=== PATIENT | female | born 1975 | race Caucasian/White ===

== ENCOUNTER → 2018-04-09 07:55 | Outpatient (CLI) | payer OTHER, MEDICAID, SELFPAY ==
--- NOTE | 2018-04-09 | DI.MRI.S_ITS ---
PROCEDURE: MR LUMBAR SPINE WO CON INDICATIONS: NECK PAIN/DORSOPATHY TECHNIQUE: Noncontrast sagittal T1 spin echo and T2 fast echo, sagittal STIR, axial T1 and T2 fast spin echo through the lumbar spine. In cases with scoliosis, additional coronal T2 fast spin echo may be performed. COMPARISON: None. FINDINGS: Image quality: Excellent. Alignment and Curvature: There is normal bony alignment. Bone Marrow: Marrow is of normal overall signal. No acute vertebral body compression fractures. Spinal Cord: Conus medullaris terminates at the L1 level. Visualized cord demonstrates normal signal and size. Paraspinous Soft Tissues: No paravertebral masses. L1-L2: Normal appearance. L2-L3: Normal appearance. L3-L4: Normal appearance. L4-L5: Loss of disc signal. Mild, diffuse disc bulge. Mild bilateral facet hypertrophy. No central stenosis. No neural foraminal narrowing. Focal high intensity zone noted in the posterior annulus compatible with fissure. No neural impingement. L5-S1: Loss of disc signal and height. Mild, diffuse disc bulge. Mild bilateral facet hypertrophy. No central stenosis. Mild right neural foraminal narrowing. Focal high intensity zones noted in the annulus compatible with fissures. No neural impingement. IMPRESSION: 1. [id number] L5-S1 degenerative disc disease. Mild L4-L5 degenerative disc disease. 2. Mild L4-L5 and L5-S1 facet arthropathy. 3. No central stenosis. 4. Mild right L5-S1 neural foraminal narrowing. 5. No neural impingement. 6. L4-L5 and L5-S1 disc annulus fissures Dictated by: Ann Marie Cardoso MD, PhD on 04/09/2018 at 13:35 Approved by: Ann Marie Cardoso MD, PhD on 04/09/2018 at 13:39
--- NOTE | 2018-04-09 | DI.MRI.S_ITS ---
PROCEDURE: MR CERVICAL SPINE WO CON INDICATIONS: NECK PAIN/DORSOPATHY TECHNIQUE: Noncontrast sagittal T1 spin echo and T2 fast spin echo, sagittal STIR, foraminal oblique sagittal T2 fast spin echo, and axial gradient echo or T2 fast spin echo through the cervical spine. COMPARISON: None. FINDINGS: Image quality: Excellent. Alignment and Curvature: There is normal bony alignment. Bone Marrow: Marrow demonstrates normal overall signal. Spinal Cord: Visualized spinal cord has normal size and signal. No cerebellar tonsillar herniation. Paraspinous Soft Tissues: No paravertebral masses. Prevertebral soft tissues are normal in thickness. C2-C3: Loss of disc signal. No central stenosis. No neural foraminal narrowing. Mild right facet hypertrophy. No neural impingement. C3-C4: Loss of disc signal and slight loss of disc height. Mild, diffuse disc bulge. No central stenosis. Mild right and moderate left neural foraminal narrowing. No neural impingement. C4-C5: Loss of disc signal and height. Mild diffuse disc bulge. Mild narrowing of the central canal. Moderate to severe bilateral neural foraminal narrowing. Slight flattening deformity exiting C5 nerve roots bilaterally secondary to neural foraminal narrowing. C5-C6: Loss of disc signal. Mild, diffuse disc bulge. No central stenosis. Mild bilateral facet hypertrophy. Mild bilateral neural foraminal narrowing. No neural impingement. C6-C7: Loss of disc signal. Mild, diffuse disc bulge. No central stenosis. Mild bilateral facet hypertrophy. No neural foraminal narrowing. No neural impingement C7-T1: Normal appearance. IMPRESSION: 1. Multilevel degenerative disc disease. 2. Multilevel facet arthropathy. 3. Mild C4-C5 the central canal narrowing. 4. Moderate to severe bilateral C4-C5 neural foraminal narrowing. Mild right and moderate left C3 on C4 neural foraminal narrowing. Mild bilateral C5-C6 and C6-C7 neural foraminal narrowing. 5. Slight flattened deformity exiting bilateral C5 nerve roots secondary to C4-C5 neural foraminal narrowing. Please correlate with clinical data. Dictated by: Ann Marie Cardoso MD, PhD on 04/09/2018 at 11:12 Approved by: Ann Marie Cardoso MD, PhD on 04/09/2018 at 11:29
== END ==
PROVIDERS: PCP Family Medicine; Visit Provider Emergency Medicine
DX: M50.30 Other cervical disc degeneration, unspecified cervical region (principal); M47.812 Spondylosis without myelopathy or radiculopathy, cervical region
CPT/HCPCS: 72141; 72148

== ENCOUNTER → 2018-04-24 14:59 | Outpatient (CLI) | payer OTHER, MEDICAID, SELFPAY ==
[2018-04-24 16:59] LABS: C-Reactive Protein Quant < 0.5 mg/dL (<1.0); Rheumatoid Factor < 8.6 IU/mL (<12.0)
[2018-04-24 17:10] LABS: Erythrocyte Sedimentation Rate 5 MM/HR (0-20)
[2018-04-26 22:06] LABS: ANA Screen NEGATIVE (Negative); DNA Antibody Crithidia IFA NEGATIVE (Negative); Rheumatoid Factor <14 IU/mL; Sjogren Antiboday SS-A <1.0 NEG AI (<1.0 NEGATIVE); Sjogren Antiboday SS-B <1.0 NEG AI (<1.0 NEGATIVE); Sm Antibody <1.0 NEG AI (<1.0 NEGATIVE); Sm/RNP Antibody <1.0 NEG AI (<1.0 NEGATIVE)
== END ==
PROVIDERS: PCP Family Medicine; Visit Provider Family Medicine
DX: M79.641 Pain in right hand (principal); M79.642 Pain in left hand
CPT/HCPCS: 36415; 85651; 86038; 86140; 86430

== ENCOUNTER 2019-02-06 08:15 | Outpatient (RCR) | payer OTHER, MEDICAID, SELFPAY ==
--- NOTE | 2019-01-31 16:07 | PT.OIE ---
Current Diagnoses Pelvic and perineal pain (01/31/19) Past Surgical History Status post appendectomy Status post bilateral salpingo-oophorectomy (BSO) (02/06/17) Status post hysterectomy (02/06/17) Status post laparoscopy (02/06/17) Provider Visit Care Team Role Provider Type Martina Aguero MD Primary Care Provider Non-Staff Specialty: Medical Address: [address] [place] [address], [id number] Email: Phillip Bee MD Attending Provider Non-Staff Specialty: PAPER SHEETER Address: [address] [place] [address], [id number] Email: Physical Therapy Initial Evaluation PT-OP-A Visit Information Start: 01/31/19 07:10 Freq: Status: Active Protocol: Document 01/31/19 09:00 AMB (Rec: 01/31/19 09:45 AMB [email or web address]) Out-Patient Physical Therapy Visit Information Visit Information Visit Type Initial Evaluation Visit Start Time 09:00 Visit Stop Time 09:45 Total Visit Minutes 45 Visit Number 1 PT-OP-B Current Condition Start: 01/31/19 07:10 Freq: Status: Active Protocol: Document 01/31/19 09:00 AMB (Rec: 02/01/19 15:41 AMB [email or web address]) Current Condition History of Current Condition Onset Date chronic Current Complaints pelvic pain and urinary incontinence History of Current Condition Loraine reports painful menses her entire life. Cramping, more right sided. She had a vaginal hysterectomy and removal of one ovary about a year ago. Now the pain, is more constant but can still be worse cyclically. She does have the right ovary still, which does have 2 cysts . About 6 months ago, she had inguinal hernia surgery bilaterally. She notes both small and large urinary leaks, multiple times per day. She has a lot of urgency. She does notice R hip pain which she states is over the piriformis but denies radiating pain. . Not currently sexually active. 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 While pain has been longstanding, leaking is new in the last year, and pain is worsening, previously she was sexually active, but she would not consider that now. Personal Factors Other Personal Factors That May Effect Anxiety. Fibromyalgia. Back Therapy/Recovery pain. PT-OP-C Subjective Start: 01/31/19 07:10 Freq: Status: Active Protocol: Document 01/31/19 09:00 AMB (Rec: 02/01/19 15:41 AMB [email or web address]) Patient Questionnaires Pelvic Pain and Urgency/Frequency Patient Symptom Scale Pelvic Pain Score 18 OP-PT Pain Assessment Pain Assessment Grid Paper Pain Assessment Grid Completed Yes Location Lower Abdomen Pain Location Details abdomen at umbilicus and lower Intensity 7 Scale Used Numeric (1 - 10) Description Cramping PT-OP-I Pelvic Floor Start: 01/31/19 07:10 Freq: Status: Active Protocol: Document 01/31/19 09:00 AMB (Rec: 02/01/19 16:07 AMB [email or web address]) Pelvic Floor Assessment Urine Pelvic Floor Surgery Yes: hysterectomy Urinary Symptoms Urge Sensation Pain Leakage Size Large Leakage Cause Cough Exercise Sneeze Urge Leaks Per Day 5 Voiding Frequency 10x/day Nocturia 2 Urine Pad Type Maxi Pad Pelvic Clock Pelvic Clock 12-3 Guarding Pelvic Clock 3-6 Guarding Tenderness Pelvic Clock 6-9 Guarding Tenderness Pelvic Clock 9-12 Guarding Perineal Descent Resting Absent Bearing Absent Contraction Ability Voluntary Contraction Absent Voluntary Relaxation Absent Comments Pelvic Floor Comments Pt initially was able to contract pelvic floor briefly, but used abdominals to help, and then became very anxious to the point that the internal exam was stopped. After discussing this with the patient, we will use biofeedback in the future, as the visual cues may work better for her. PT-OP-T Assessment and Plan Start: 01/31/19 07:10 Freq: Status: Active Protocol: Document 01/31/19 09:00 AMB (Rec: 02/01/19 16:07 AMB [email or web address]) Physical Therapy Assessment Rehab Potential Rehabilitation Potential Fair Evaluation Complexity Number of Personal Factors/Comorbidities 1-2 Number of Body Systems Impaired 4 or More Clinical Presentation at Evaluation Evolving Impairments Impairments Balance Functional Activities Pain Strength Goals Three Impairment Strength Long-Term Goal (LTG) Loraine will learn how to engage her pelvic floor muscles to strengthen them to 3/5 or greater. LTG Duration 10 weeks Two Impairment Pain Short Term Goal (STG) Loraine will be able to engage in the sexual activity of her choice without pain. STG Duration 4 weeks Long-Term Goal (LTG) Loraine will be able to hold urine for 2 hours without an increase in pain. LTG Duration 8 weeks One Impairment Incontinence Short Term Goal (STG) Loraine will be independent with urge suppression techniques to avoid urge incontinence. STG Duration 4 weeks Long-Term Goal (LTG) Loraine will cough without leaking. LTG Duration 8 weeks Assessment Summary Assessment Loraine presents to physical therapy with a worsening of her chronic pelvic and abdominal pain, with a more recent onset of both urge and stress urinary incontinence. She had a difficult time finding her pelvic floor muscles, and palpation of her pelvic floor did refer pain into her abdomen. Her hip/ back/piriformis orthopedic dysfunction may also be playing a role in her pelvic floor dysfunction. She will benefit from manual therapy to help her relax her pelvic floor, and then a strengthening program to improve her incontinence. Physical Therapy Plan Frequency and Duration Frequency of Treatment 1x/Week Duration of Treatment 10 weeks Plan of Care Start Date 01/31/19 Plan of Care End Date 04/11/19 Therapeutic Interventions Therapeutic Interventions Home Exercise Program Manual Therapy Neuromuscular Re-education Self-Care/Home Management Therapeutic Activities Therapeutic Exercises Modalities Biofeedback Electric Stimulation Next Visit Focus/Plan Next Note Type Treatment Note Next Visit Plan Biofeedback for pelvic relaxation, self massage for abdominal pain
--- NOTE | 2019-02-01 16:08 | PT.OPPOC ---
Current Diagnoses Pelvic and perineal pain (01/31/19) Provider Visit Care Team Role Provider Type Martina Aguero MD Primary Care Provider Non-Staff Specialty: Medical Address: [address] [place] [address], [place], [address] Email: Phillip Bee MD Attending Provider Non-Staff Specialty: COMMISSARY MANAGER Address: [address] [place] [address], [id number] Email: Plan Of Care PT-OP-T Assessment and Plan Start: 01/31/19 07:10 Freq: Status: Active Protocol: Document 01/31/19 09:00 AMB (Rec: 02/01/19 16:07 AMB [email or web address]) Physical Therapy Assessment Rehab Potential Rehabilitation Potential Fair Evaluation Complexity Number of Personal Factors/Comorbidities 1-2 Number of Body Systems Impaired 4 or More Clinical Presentation at Evaluation Evolving Impairments Impairments Balance Functional Activities Pain Strength Goals Three Impairment Strength Nutritional Services Cook Goal (LTG) Loraine will learn how to engage her pelvic floor muscles to strengthen them to 3/5 or greater. LTG Duration 10 weeks Two Impairment Pain Short Term Goal (STG) Loraine will be able to engage in the sexual activity of her choice without pain. STG Duration 4 weeks Jail Goal (LTG) Loraine will be able to hold urine for 2 hours without an increase in pain. LTG Duration 8 weeks One Impairment Incontinence Short Term Goal (STG) Loraine will be independent with urge suppression techniques to avoid urge incontinence. STG Duration 4 weeks Nutritional Services Cook Goal (LTG) Loraine will cough without leaking. LTG Duration 8 weeks Assessment Summary Assessment Loraine presents to physical therapy with a worsening of her chronic pelvic and abdominal pain, with a more recent onset of both urge and stress urinary incontinence. She had a difficult time finding her pelvic floor muscles, and palpation of her pelvic floor did refer pain into her abdomen. Her hip/ back/piriformis orthopedic dysfunction may also be playing a role in her pelvic floor dysfunction. She will benefit from manual therapy to help her relax her pelvic floor, and then a strengthening program to improve her incontinence. Physical Therapy Plan Frequency and Duration Frequency of Treatment 1x/Week Duration of Treatment 10 weeks Plan of Care Start Date 01/31/19 Plan of Care End Date 04/11/19 Therapeutic Interventions Therapeutic Interventions Home Exercise Program Manual Therapy Neuromuscular Re-education Self-Care/Home Management Therapeutic Activities Therapeutic Exercises Modalities Biofeedback Electric Stimulation Next Visit Focus/Plan Next Note Type Treatment Note Next Visit Plan Biofeedback for pelvic relaxation, self massage for abdominal pain Plan of Care Dates Plan of Care Start Date 01/31/19 Plan of Care End Date 04/11/19 Please Sign and Return: I have reviewed this Plan of Care and certify that the skilled therapy services above are required to meet the patient?s needs. Physician Signature Date Printed Name and Credentials Clinical Instructor Signature Printed Name and Credentials
--- NOTE | 2019-02-06 15:28 | PT.OTN ---
Current Diagnoses Pelvic and perineal pain (02/06/19) Physical Therapy Treatment Note PT-OP-A Visit Information Start: 01/31/19 07:10 Freq: Status: Active Protocol: Document 02/06/19 08:15 AMB (Rec: 02/06/19 15:28 AMB [email or web address]) Out-Patient Physical Therapy Visit Information Visit Information Visit Type Treatment Note Visit Start Time 08:15 Visit Stop Time 09:00 Total Visit Minutes 45 Visit Number 2 PT-OP-B Current Condition Start: 01/31/19 07:10 Freq: Status: Active Protocol: Document 01/31/19 09:00 AMB (Rec: 02/01/19 15:41 AMB [email or web address]) Current Condition History of Current Condition Onset Date chronic Current Complaints pelvic pain and urinary incontinence History of Current Condition Loraine reports painful menses her entire life. Cramping, more right sided. She had a vaginal hysterectomy and removal of one ovary about a year ago. Now the pain, is more constant but can still be worse cyclically. She does have the right ovary still, which does have 2 cysts . About 6 months ago, she had inguinal hernia surgery bilaterally. She notes both small and large urinary leaks, multiple times per day. She has a lot of urgency. She does notice R hip pain which she states is over the piriformis but denies radiating pain. . Not currently sexually active. 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 While pain has been longstanding, leaking is new in the last year, and pain is worsening, previously she was sexually active, but she would not consider that now. Personal Factors Other Personal Factors That May Effect Anxiety. Fibromyalgia. Back Therapy/Recovery pain. PT-OP-C Subjective Start: 01/31/19 07:10 Freq: Status: Active Protocol: Document 02/06/19 08:15 AMB (Rec: 02/06/19 15:28 AMB [email or web address]) OP-PT Subjective Patient Comments Patient Comments Pt has a migraine today. She has been having increase R sided abdominal pain for the past 2 days. She finds that trying to hold her urine increases her abdominal pain, she also finds that trying to do a Kegel increases her abdominal pain. PT-OP-I Pelvic Floor Start: 01/31/19 07:10 Freq: Status: Active Protocol: Document 01/31/19 09:00 AMB (Rec: 02/01/19 16:07 AMB [email or web address]) Pelvic Floor Assessment Urine Pelvic Floor Surgery Yes: hysterectomy Urinary Symptoms Urge Sensation Pain Leakage Size Large Leakage Cause Cough Exercise Sneeze Urge Leaks Per Day 5 Voiding Frequency 10x/day Nocturia 2 Urine Pad Type Maxi Pad Pelvic Clock Pelvic Clock 12-3 Guarding Pelvic Clock 3-6 Guarding Tenderness Pelvic Clock 6-9 Guarding Tenderness Pelvic Clock 9-12 Guarding Perineal Descent Resting Absent Bearing Absent Contraction Ability Voluntary Contraction Absent Voluntary Relaxation Absent Comments Pelvic Floor Comments Pt initially was able to contract pelvic floor briefly, but used abdominals to help, and then became very anxious to the point that the internal exam was stopped. After discussing this with the patient, we will use biofeedback in the future, as the visual cues may work better for her. PT-OP-Q Treatments Start: 01/31/19 07:10 Freq: Status: Active Protocol: Document 02/06/19 08:15 AMB (Rec: 02/06/19 15:28 AMB [email or web address]) Therapeutic Exercises Supine Exercises 3 Supine Exercise Name cat/cow with breath Reps/Minutes 2x10 2 Supine Exercise Name quadruped side bend Reps/Minutes 1x10 1 Supine Exercise Name lower trunk rotation Reps/Minutes 2x10 Manual Therapy Treatment Soft Tissue Mobilization 2 Body Location abdomen Comments ILU and then bladder superior MFR 1 Body Location R piriformis Mobilization Type Myofascial Release Sustained Pressure Manual Traction long axis Details L leg Body Position Supine Manual Techniques 1 Type pubic shotgun PT-OP-R Modalities Start: 01/31/19 07:10 Freq: Status: Active Protocol: Document 02/06/19 08:15 AMB (Rec: 02/06/19 15:28 AMB [email or web address]) Hot Pack/Cold Pack Treatment Hot Pack Location abdomen Patient Position Hooklying Treatment Duration (minutes) 10 PT-OP-T Assessment and Plan Start: 01/31/19 07:10 Freq: Status: Active Protocol: Document 02/06/19 08:15 AMB (Rec: 02/06/19 15:28 AMB [email or web address]) Physical Therapy Assessment Assessment Summary Assessment R posterior ASIS in supine today, better after manual, may teach self MET if continues to be low. Pt with continued difficulty identifying pelvic floor will need to continue with biofeedback but deferred due to pain increase today. Physical Therapy Plan Next Visit Focus/Plan Next Note Type Treatment Note Next Visit Plan Biofeedback for pelvic relaxation, self massage for abdominal pain
--- NOTE | 2019-02-26 14:47 | PT.OPDS ---
Current Diagnoses Pelvic and perineal pain (02/06/19) Provider Visit Care Team Role Provider Type Martina Aguero MD Primary Care Provider Non-Staff Specialty: Medical Address: [address] [place] [address], [place], [address] Email: Phillip Bee MD Attending Provider Non-Staff Specialty: POST OFFICE MARKUP CLERK Address: [address] [place] [address], [address] Email: Visit Number Visit Number 2 Discharge Summary PT-OP-B Current Condition Start: 01/31/19 07:10 Freq: Status: Active Protocol: Document 01/31/19 09:00 AMB (Rec: 02/01/19 15:41 AMB [email or web address]) Current Condition History of Current Condition Onset Date chronic Current Complaints pelvic pain and urinary incontinence History of Current Condition Loraine reports painful menses her entire life. Cramping, more right sided. She had a vaginal hysterectomy and removal of one ovary about a year ago. Now the pain, is more constant but can still be worse cyclically. She does have the right ovary still, which does have 2 cysts . About 6 months ago, she had inguinal hernia surgery bilaterally. She notes both small and large urinary leaks, multiple times per day. She has a lot of urgency. She does notice R hip pain which she states is over the piriformis but denies radiating pain. . Not currently sexually active. 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 While pain has been longstanding, leaking is new in the last year, and pain is worsening, previously she was sexually active, but she would not consider that now. Personal Factors Other Personal Factors That May Effect Anxiety. Fibromyalgia. Back Therapy/Recovery pain. PT-OP-C Subjective Start: 01/31/19 07:10 Freq: Status: Active Protocol: Document 02/06/19 08:15 AMB (Rec: 02/06/19 15:28 AMB [email or web address]) OP-PT Subjective Patient Comments Patient Comments Pt has a migraine today. She has been having increase R sided abdominal pain for the past 2 days. She finds that trying to hold her urine increases her abdominal pain, she also finds that trying to do a Kegel increases her abdominal pain. PT-OP-I Pelvic Floor Start: 01/31/19 07:10 Freq: Status: Active Protocol: Document 01/31/19 09:00 AMB (Rec: 02/01/19 16:07 AMB [email or web address]) Pelvic Floor Assessment Urine Pelvic Floor Surgery Yes: hysterectomy Urinary Symptoms Urge Sensation Pain Leakage Size Large Leakage Cause Cough Exercise Sneeze Urge Leaks Per Day 5 Voiding Frequency 10x/day Nocturia 2 Urine Pad Type Maxi Pad Pelvic Clock Pelvic Clock 12-3 Guarding Pelvic Clock 3-6 Guarding Tenderness Pelvic Clock 6-9 Guarding Tenderness Pelvic Clock 9-12 Guarding Perineal Descent Resting Absent Bearing Absent Contraction Ability Voluntary Contraction Absent Voluntary Relaxation Absent Comments Pelvic Floor Comments Pt initially was able to contract pelvic floor briefly, but used abdominals to help, and then became very anxious to the point that the internal exam was stopped. After discussing this with the patient, we will use biofeedback in the future, as the visual cues may work better for her. PT-OP-T Assessment and Plan Start: 01/31/19 07:10 Freq: Status: Active Protocol: Document 02/26/19 14:44 AMB (Rec: 02/26/19 14:47 AMB [email or web address]) Physical Therapy Assessment Goals Three Impairment Strength Patient Support Specialist Goal (LTG) Loraine will learn how to engage her pelvic floor muscles to strengthen them to 3/5 or greater. LTG Duration NOT MET Two Impairment Pain Short Term Goal (STG) Loraine will be able to engage in the sexual activity of her choice without pain. STG Duration NOT MET Patient Support Specialist Goal (LTG) Loraine will be able to hold urine for 2 hours without an increase in pain. LTG Duration NOT MET One Impairment Incontinence Short Term Goal (STG) Loraine will be independent with urge suppression techniques to avoid urge incontinence. STG Duration NOT MET Patient Support Specialist Goal (LTG) Loraine will cough without leaking. LTG Duration NOT MET Assessment Summary Assessment Pt attended 2 appointments, 1 eval and 1 treatment, and then requested to be discharged. She did not make significant gains since she had a migraine at her last treatment. She had difficulty understanding pelvic strengthening exercises . Anxiety was a big issue for her. Physical Therapy Plan Discharge Physical Therapy Discharge Reasons Patient Request
== END 2019-02-26 16:35 | disposition home or self-care (01) ==
LOC: PHYS 08:15
PROVIDERS: PCP Family Medicine; Visit Provider Obstetrics & Gynecology
DX: R10.2 Pelvic and perineal pain (principal)
CPT/HCPCS: 97110; 97140; 97162

== ENCOUNTER → 2019-03-26 19:12 | Outpatient (CLI) | payer OTHER, MEDICAID, SELFPAY ==
--- NOTE | 2019-03-26 19:16 | DI.MRI.S_ITS ---
PROCEDURE: MR CERVICAL SPINE WO CON INDICATIONS: PERESTHESIA OF SKIN - PAIN TECHNIQUE: Noncontrast sagittal T1 spin echo and T2 fast spin echo, sagittal STIR, foraminal oblique sagittal T2 fast spin echo, and axial gradient echo or T2 fast spin echo through the cervical spine. COMPARISON: [facility], MR, MR CERVICAL SPINE WO CON, 04/09/2018, 8:06. FINDINGS: Image quality: Excellent. Alignment and Curvature: Grossly unchanged alignment with straightening of the normal cervical lordosis. Trace retrolisthesis of C3 on C4 and C4 on C5. Bone Marrow: Multilevel degenerative endplate sclerosis and spurring. Diffuse facet arthropathy. Spinal Cord: Visualized spinal cord has normal size and signal. No cerebellar tonsillar herniation. Paraspinous Soft Tissues: No paravertebral masses. Prevertebral soft tissues are normal in thickness. C2-C3: Normal appearance. C3-C4: Bilateral uncovertebral arthropathy and posterior intervening disc osteophyte complex, and bilateral facet arthropathy. No high-grade canal stenosis. No left foraminal stenosis. Mild right foraminal narrowing with mild compression of the exiting nerve root although the appearance is unchanged since 04/09/18 C4-C5: Bilateral uncovertebral arthropathy and posterior intervening disc osteophyte complex, which is mildly asymmetric, left greater than right. Bilateral facet arthropathy. Mild left-sided canal narrowing however grossly unchanged. Moderate left foraminal stenosis which is probably unchanged associated compression of the nerve root. Moderate right foraminal narrowing with associated compression of the nerve root, also unchanged. C5-C6: Bilateral uncovertebral arthropathy and posterior intervening disc osteophyte complex, and bilateral facet arthropathy. No high-grade canal stenosis. No definite left foraminal stenosis. Mild right foraminal narrowing. No interval change. C6-C7: Bilateral uncovertebral arthropathy and posterior intervening disc osteophyte complex, and bilateral facet disease. No canal stenosis. No definite foraminal stenosis bilaterally. C7-T1: Bilateral uncovertebral arthropathy and posterior intervening disc osteophyte complex, and bilateral facet arthropathy. No canal stenosis. Mild left foraminal narrowing with minimal compression of the nerve root. No definite right foraminal stenosis. Overall appearance is unchanged IMPRESSION: No interval change since 04/09/18 as detailed above by spinal level. Dictated by: Inder Nichole M.D. on 03/27/2019 at 9:26 Approved by: Inder Nichole M.D. on 03/27/2019 at 9:34
--- NOTE | 2019-03-26 19:16 | DI.MRI.S_ITS ---
PROCEDURE: MR THORACIC SPINE WO CON INDICATIONS: PERESTHESIA OF SKIN - PAIN TECHNIQUE: Noncontrast sagittal T1 spine echo and T2 fast spin echo, sagittal STIR, axial T1 and T2 fast spin echo through the thoracic spine. COMPARISON: [facility], CR, THORACIC SPINE 3 VIEWS, 07/27/2016, 14:57. [facility], MR, MR LUMBAR SPINE WO CON, 03/26/2019, 20:03. [facility], MR, MR CERVICAL SPINE WO CON, 03/26/2019, 19:26. FINDINGS: Image quality: Diagnostic Alignment and Curvature: There is normal bony alignment. Bone Marrow: Marrow is of normal overall signal. No acute vertebral body compression fractures. Spinal Cord: Visualized spinal cord is normal in size and signal. Paraspinous Soft Tissues: No paravertebral masses. Miscellaneous: Mild central disc protrusions can be seen at the T5-T6 and the T6-T7 levels. No significant neural foraminal or central canal narrowing can be seen throughout. IMPRESSION: No significant thoracic spine abnormality can be seen. Dictated by: Maikol Irene M.D. on 03/27/2019 at 8:17 Approved by: Maikol Irene M.D. on 03/27/2019 at 8:20
--- NOTE | 2019-03-26 19:16 | DI.MRI.S_ITS ---
PROCEDURE: MR LUMBAR SPINE WO CON INDICATIONS: PARESTHESIA OF SKIN TECHNIQUE: Noncontrast sagittal T1 spin echo and T2 fast echo, sagittal STIR, axial T1 and T2 fast spin echo through the lumbar spine. In cases with scoliosis, additional coronal T2 fast spin echo may be performed. COMPARISON: [facility], MR, MR LUMBAR SPINE WO CON, 04/09/2018, 8:26. [facility], MR, MR CERVICAL SPINE WO CON, 03/26/2019, 19:26. [facility], MR, MR THORACIC SPINE WO CON, 03/26/2019, 19:44. FINDINGS: Image quality: Diagnostic Alignment and Curvature: There is normal bony alignment. Bone Marrow: Marrow is of normal overall signal. No acute vertebral body compression fractures. Spinal Cord: Conus medullaris terminates at the L1 level. Visualized cord demonstrates normal signal and size. Paraspinous Soft Tissues: No paravertebral masses. T12-L1: Normal appearance. L1-L2: Normal appearance. L2-L3: Normal appearance. L3-L4: The disc height and disk signal are well-preserved. Mild generalized disc bulge is seen. Mild facet joint hypertrophy is seen. Mild bilateral neural foraminal narrowing is seen. No significant central canal narrowing is seen. L4-L5: Mild loss of disc height is seen. Loss of disc signal is seen. [id number] disc bulge is seen. Moderate facet hypertrophy is seen, left worse than right. There is moderate bilateral neural foraminal narrowing seen, right worse than left. Mild to moderate central canal narrowing is seen. L5-S1: Moderate to severe loss of disc height and disc signal are seen. Reactive marrow endplate changes are seen, which are hyperintense on T1-weighted and T2-weighted imaging and most consistent with fatty metaplasia (Modic type II changes). Moderate generalized disc bulge is seen. Mild facet joint hypertrophy is seen. Moderate bilateral neural foraminal narrowing is seen, right worse than left. Mild to moderate central canal narrowing is seen. IMPRESSION: Focal L5-S1 degenerative change, with milder degenerative changes seen elsewhere. Dictated by: Maikol Irene M.D. on 03/27/2019 at 8:20 Approved by: Maikol Irene M.D. on 03/27/2019 at 8:23
== END ==
PROVIDERS: PCP Family Medicine; Visit Provider Nurse Practitioner Family
DX: M54.6 Pain in thoracic spine (principal); R20.2 Paresthesia of skin; M47.817 Spondylosis without myelopathy or radiculopathy, lumbosacral region; M47.812 Spondylosis without myelopathy or radiculopathy, cervical region; M48.02 Spinal stenosis, cervical region
CPT/HCPCS: 72141; 72146; 72148

== ENCOUNTER → 2019-07-05 16:17 | Outpatient (CLI) | payer OTHER, MEDICAID, SELFPAY ==
--- NOTE | 2019-07-05 16:19 | DI.US.S_ITS ---
PROCEDURE: US EXTREMITY NONVASC LOWER LT INDICATIONS: dog bite TECHNIQUE: Real-time scanning was performed of the left lower extremity, with image documentation. COMPARISON: None. FINDINGS: In the region of the left lateral hip, there is a subcutaneous fluid collection measuring 2.1 x 0.3 x 1.6 cm. This corresponds to the region of palpable abnormality. No discrete mass lesion identified. IMPRESSION: Nonspecific fluid collection, potentially resolving hematoma versus seroma (bland or infected). Dictated by: Inder Nichole M.D. on 07/05/2019 at 17:22 Approved by: Inder Nichole M.D. on 07/05/2019 at 17:23
== END ==
PROVIDERS: PCP Family Medicine; Visit Provider Nurse Practitioner Family
DX: S70.272A Other superficial bite of hip, left hip, initial encounter (principal); R22.2 Localized swelling, mass and lump, trunk; W54.0XXA Bitten by dog, initial encounter
CPT/HCPCS: 76882

== ENCOUNTER → 2019-11-21 07:42 | Outpatient (CLI) | payer OTHER, MEDICAID, SELFPAY ==
--- NOTE | 2019-11-21 | DI.MRI.S_ITS ---
PROCEDURE: MR SHOULDER LT WO CON INDICATIONS: Pain in left shoulder TECHNIQUE: Noncontrast oblique coronal T2 fast spin echo with fat saturation, oblique sagittal T1 spin echo and T2 fast spin echo with fat saturation, axial T1 spin echo and T2 fast spin echo with fat saturation through the shoulder. COMPARISON: None. FINDINGS: Image quality: Diagnostic with mild motion artifact. Rotator cuff: There is mild to moderate partial tearing predominantly along the articular surface in the distal supraspinatus approximately 6 mm from its insertion. This measures approximately 8 mm in anteroposterior dimension. No discrete full thickness tear or tendon retraction. The infraspinatus, subscapularis, and teres minor appear intact Sagittal images demonstrate no fatty muscle atrophy. Bones and bursae: No bone marrow contusions or fractures. There is mild to moderate acromioclavicular joint degeneration with mild periarticular soft tissue and bone marrow edema. The acromion demonstrates conventional anatomy, without an os acromiale. A small amount of subacromial-subdeltoid or subcoracoid bursal fluid is present. Capsule and soft tissues: There is linear intermediate signal suggestive of mild degenerative tearing in the posterosuperior labrum. In the absence of intra-articular contrast, the glenohumeral ligaments appear intact. The long head of the biceps tendon demonstrates normal location and morphology. The rotator interval appears normal, without fibrosis. The coracohumeral ligament is normal in thickness. IMPRESSION: 1. Mild to moderate partial thickness tearing in the distal supraspinatus as described. No discrete full-thickness tear or tendon retraction. 2. Wczp-jg-siwbyxof acromioclavicular joint degeneration with mild subacromial/subdeltoid bursitis. 3. Suspected small linear tear at in the posterosuperior labrum. Dictated by: Sal Rai M.D. on 11/21/2019 at 10:14 Approved by: Sal Rai M.D. on 11/21/2019 at 10:20
== END ==
PROVIDERS: PCP Family Medicine; Visit Provider Nurse Practitioner Family
DX: M25.512 Pain in left shoulder (principal); M75.112 Incomplete rotator cuff tear or rupture of left shoulder, not specified as traumatic; M19.012 Primary osteoarthritis, left shoulder; M75.52 Bursitis of left shoulder; G89.29 Other chronic pain
CPT/HCPCS: 73221

== ENCOUNTER → 2019-12-02 07:47 | Outpatient (CLI) | payer OTHER, MEDICAID, SELFPAY ==
--- NOTE | 2019-12-02 | DI.MRI.S_ITS ---
PROCEDURE: MR CERVICAL SPINE WO CON INDICATIONS: Other muscle spasm TECHNIQUE: Noncontrast sagittal T1 spin echo and T2 fast spin echo, sagittal STIR, foraminal oblique sagittal T2 fast spin echo, and axial gradient echo or T2 fast spin echo through the cervical spine. COMPARISON: [facility], MR, MR CERVICAL SPINE WO CON, 04/09/2018, 8:06. [facility], MR, MR CERVICAL SPINE WO CON, 03/26/2019, 19:26. FINDINGS: Image quality: Excellent. Alignment and Curvature: There is normal bony alignment. Bone Marrow: Marrow demonstrates normal overall signal. Spinal Cord: Visualized spinal cord has normal size and signal. No cerebellar tonsillar herniation. Paraspinous Soft Tissues: No paravertebral masses. Prevertebral soft tissues are normal in thickness. C2-C3: Preserved disc height. Mild disc desiccation. There is diffuse posterior disc bulge and uncovertebral hypertrophy. Mild bilateral facet arthropathy. The central canal is patent. No foraminal stenosis. C3-C4: Mild loss of disc height and disc desiccation. There is mild bilateral facet arthropathy. The central canal is patent. Moderate bilateral foraminal stenosis, not significantly changed from the last exam. C4-C5: Mild loss of disc height and disc desiccation. There is mild bilateral facet arthropathy. The central canal is mildly narrowed. Tazisigy-oi-uufwcp bilateral foraminal stenosis. There is no significant change from the last exam. C5-C6: Mild loss of disc height and disc desiccation. Mild posterior disc bulge. There is moderate bilateral facet arthropathy. The central canal is patent. Mild bilateral foraminal stenosis, not significantly changed from the last exam. C6-C7: Mild loss of disc height and disc desiccation. Mild posterior disc bulge. There is moderate bilateral facet arthropathy. The central canal is patent. Mild bilateral foraminal stenosis, not significantly changed from the last exam. C7-T1: Normal appearance. IMPRESSION: 1. Multilevel degenerative disc disease and facet arthropathy as described. 2. Mild central canal stenosis at C4-C5, not significantly changed. 3. Multilevel foraminal stenosis as described, not significantly changed. Dictated by: Shai Rahman M.D. on 12/02/2019 at 12:44 Approved by: Shai Rahman M.D. on 12/03/2019 at 8:18
== END ==
PROVIDERS: PCP Family Medicine; Visit Provider Nurse Practitioner Family
DX: M62.838 Other muscle spasm (principal); M50.31 Other cervical disc degeneration, high cervical region; M48.02 Spinal stenosis, cervical region; M47.812 Spondylosis without myelopathy or radiculopathy, cervical region
CPT/HCPCS: 72141

== ENCOUNTER → 2020-01-22 12:39 | Outpatient (CLI) | payer OTHER, MEDICAID, SELFPAY ==
[2020-01-26 19:24] LABS: Anti Gliadin IgG Ab 2 Units (<20); Gliadin Gluten IgA 3 Units (<20)
== END ==
PROVIDERS: PCP Nurse Practitioner Family; Referring Provider Nurse Practitioner Family; Visit Provider Nurse Practitioner Family
DX: R10.9 Unspecified abdominal pain (principal)
CPT/HCPCS: 36415; 83516

== ENCOUNTER → 2020-06-18 12:37 | Outpatient (CLI) | payer OTHER, MEDICAID, SELFPAY | PROVIDERS: PCP Nurse Practitioner Family; Visit Provider Registered Nurse | DX: M75.42 Impingement syndrome of left shoulder (principal) | CPT/HCPCS: 95886; 95911 ==

== ENCOUNTER → 2020-09-16 15:22 | Outpatient (CLI) | payer OTHER, MEDICAID, SELFPAY ==
--- NOTE | 2020-09-16 15:24 | DI.RAD.S_ITS ---
PROCEDURE: XR CERVICAL SPINE 4V OR 5V INDICATIONS: neck pain TECHNIQUE: 5 views of the cervical spine acquired. COMPARISON: None. FINDINGS: Bones: No fracture. Straightening of the normal lordotic curvature. Multilevel degenerative endplate sclerosis and spurring. Diffuse facet arthropathy. Moderate narrowing of the C3-C4 and C4-C5 disc spaces. On the left there is mild bony foraminal narrowing at C4-C5. On the right, there is mild C4-C5 bony foraminal narrowing Soft tissues: No prevertebral soft tissue swelling. IMPRESSION: Cervical spondylosis and facet arthropathy as above Mild bilateral C4-C5 bony foraminal stenosis. Dictated by: Inder Nichole M.D. on 09/16/2020 at 15:51 Approved by: Inder Nichole M.D. on 09/16/2020 at 15:53
== END ==
PROVIDERS: PCP Nurse Practitioner Family; Referring Provider Physical Medicine & Rehabilitation; Visit Provider Physical Medicine & Rehabilitation
DX: M54.2 Cervicalgia (principal); M47.22 Other spondylosis with radiculopathy, cervical region; M50.223 Other cervical disc displacement at C6-C7 level; M48.02 Spinal stenosis, cervical region; M51.04 Intervertebral disc disorders with myelopathy, thoracic region; M53.3 Sacrococcygeal disorders, not elsewhere classified
CPT/HCPCS: 72050; 99214

== ENCOUNTER → 2021-02-26 07:04 | Outpatient (CLI) | payer OTHER, MEDICAID, SELFPAY ==
[2021-02-26 08:14] LABS: Add Manual Diff / Slide Review NO; Basophils Absolute Auto 100 /uL (0-100); Eosinophils Absolute Auto 200 /uL (0-450); Eosinophils Percent Auto 2.4 % (2-4); HEMOLYSIS < 15 (0-50); Hematocrit 41.8 % (36-46); Hemoglobin 14.3 g/dL (12.0-16.0); Lymphocytes Absolute Auto 2300 /uL (1100-4500); Lymphocytes Percent Auto 24.3 % (25-40); Mean Corpuscular HGB Conc 34.1 % (30-36); Mean Corpuscular Hemoglobin 31.2 PG (26-34); Mean Corpuscular Volume 91.6 fL (80-100); Monocytes Absolute Auto 600 /uL (0-900); Monocytes Percent Auto 6.4 % (3-14); Neutrophils Absolute Auto 6200 /uL (1500-7000); Neutrophils Percent Auto 65.9 % (50-75); Platelet Count 284 X10^3/uL (150-400); Red Blood Cell Count 4.57 X10^6/uL (4.0-5.2); Red Cell Distribution Width 12.9 % (11.6-14.8); White Blood Cell Count 9.4 X10^3/uL (4.5-11.0)
[2021-02-26 08:23] LABS: Alanine Aminotransferase 24 IU/L (<35); Albumin 4.3 g/dL (3.5-5.0); Albumin Globulin Ratio 1.7 (1.0-2.8); Alkaline Phosphatase 66 U/L (38-126); Aspartate Aminotransferase 24 IU/L (14-36); BUN Creatinine Ratio 22.2 (6-22); Bilirubin Total 0.3 mg/dL (0.2-1.3); Blood Urea Nitrogen 16 mg/dL (7-17); Calcium 9.6 mg/dL (8.4-10.2); Carbon Dioxide 26 mmol/L (22-32); Chloride 104 mmol/L (98-107); Cholesterol 207 mg/dL (140-199); Estimated Glomerular Filt Rate > 60.0 mL/min (>60); Globulin 2.6 g/dL (1.7-4.1); Glucose 98 mg/dL (70-100); HDL Cholesterol 61 mg/dL (40-60); LDL Cholesterol Calculated 131 mg/dL (<100); Magnesium 2.1 mg/dL (1.6-2.3); Potassium 4.2 mmol/L (3.4-5.1); Sodium 137 mmol/L (137-145); Total Protein 6.9 g/dL (6.3-8.2); Triglycerides 73 mg/dL (35-150)
[2021-02-26 08:55] LABS: Ferritin 56 ng/mL (6-137)
[2021-02-26 09:59] LABS: Folate > 20.0 ng/mL (2.76-20.0); Vitamin B12 574 pg/mL (239-931)
[2021-02-28 13:07] LABS: HEMOLYSIS < 15 (0-50); Iron 72 ug/dL (37-170)
[2021-02-28 13:24] LABS: Transferrin 226 mg/dL (206-381)
[2021-02-28 13:28] LABS: Percent Iron Saturation 27 % (15-50); Total Iron Binding Capacity 263 ug/dL (265-497)
[2021-02-28 13:37] LABS: TSH w/ Reflex to FT4 0.97 uIU/mL (0.47-4.68)
== END ==
PROVIDERS: PCP Nurse Practitioner Family; Referring Provider Nurse Practitioner Family; Visit Provider Nurse Practitioner Family
DX: M79.10 Myalgia, unspecified site (principal); Z13.0 Encounter for screening for diseases of the blood and blood-forming organs and certain disorders involving the immune mechanism; Z13.220 Encounter for screening for lipoid disorders; Z13.29 Encounter for screening for other suspected endocrine disorder; Z13.1 Encounter for screening for diabetes mellitus
CPT/HCPCS: 36415; 80053; 80061; 82607; 82728; 82746; 83540; 83550; 83735; 84443; 85025

== ENCOUNTER → 2021-05-07 16:06 | Outpatient (CLI) | payer OTHER, MEDICAID, SELFPAY ==
--- NOTE | 2021-05-07 16:08 | DI.MRI.S_ITS ---
PROCEDURE: MR HEAD/BRAIN WO CON INDICATIONS: LOWER EXTREMITY WEKANESS TECHNIQUE: Noncontrast axial T1 spin echo, axial T2 fast spin echo, sagittal and axial FLAIR, coronal T2 fast spin echo, axial gradient echo, axial diffusion and ADC through the brain. COMPARISON: None. FINDINGS: Image quality: Excellent. CSF Spaces: Basal cisterns are patent. No extra-axial fluid collections. Ventricles are normal in size and shape. Brain: No intracranial masses or hemorrhage. Gallagher/white matter interface is normal. Brainstem appears normal. Diffusion-weighted images demonstrate no acute ischemic insult. No chronic ischemic insults. Normal intravascular flow voids are present. Skull and face: Calvarium has normal marrow signal. Orbits appear normal. Sinuses: Sinuses and mastoids are clear. IMPRESSION: Negative brain MRI. No acute process. No recent infarct. Dictated by: Claudia Bray M.D. on 05/07/2021 at 16:49 Approved by: Claudia Bray M.D. on 05/07/2021 at 16:49
== END ==
PROVIDERS: Referring Provider Nurse Practitioner Family; Visit Provider Nurse Practitioner Family
DX: R53.1 Weakness (principal)
CPT/HCPCS: 70551

== ENCOUNTER → 2021-05-11 12:54 | Outpatient (CLI) | payer OTHER, MEDICAID, SELFPAY ==
--- NOTE | 2021-05-11 12:56 | DI.RAD.S_ITS ---
PROCEDURE: XR LUMBAR SPINE MIN 4V INDICATIONS: BACK PAIN TECHNIQUE: 5 views of the lumbar spine were acquired, including bilateral oblique views. COMPARISON: [facility], MR, MR LUMBAR SPINE WO CON, 03/26/2019, 20:03. FINDINGS: Bones: 5 nonrib-bearing vertebrae are present. There is normal bony alignment. No vertebral body compression fractures. No suspicious bony lesions. The degenerative disc disease is minimal until the L4-5 level is reached where mild to moderate degenerative disc height reduction is seen and then at L5-S1 there is moderately severe degenerative disc height reduction. Soft tissues: Overlying bowel gas pattern is normal. No suspicious soft tissue calcifications. Oblique images: No pars defects. IMPRESSION: No subluxation seen, no prior trauma. Moderately severe L5-S1 degenerative disc height reduction and mild facet osteoarthritis. This was previously present during MR scanning 03/26/19. Dictated by: Claudy Briscoe M.D. on 05/11/2021 at 14:40 Approved by: Claudy Briscoe M.D. on 05/11/2021 at 14:41
--- NOTE | 2021-05-11 12:56 | DI.RAD.S_ITS ---
PROCEDURE: XR CERVICAL SPINE 4V OR 5V INDICATIONS: NECK PAIN TECHNIQUE: 5 views of the cervical spine acquired. COMPARISON: [facility], CR, XR CERVICAL SPINE 4V OR 5V, 09/16/2020, 15:20. FINDINGS: Bones: No fractures or dislocations to the T1 level. Oblique images demonstrate moderate symmetric bilateral C4-5 bony foraminal stenoses. The degenerative disc disease along the cervical spine is minimal except at C3-4 and C4-5, as was previously the case in August of 2020. No subluxation has developed Soft tissues: No prevertebral soft tissue swelling. IMPRESSION: Rqqe-fy-qjhgmpne C3-4 and moderate C4-5 degenerative disc disease and there is stable moderate symmetric C4-5 bilateral foraminal stenosis from August 2020. No trauma found. Dictated by: Claudy Briscoe M.D. on 05/11/2021 at 14:16 Approved by: Claudy Briscoe M.D. on 05/11/2021 at 14:39
--- NOTE | 2021-05-11 12:56 | DI.RAD.S_ITS ---
PROCEDURE: XR THORACIC SPINE 3V INDICATIONS: RIB PAIN TECHNIQUE: 3 views of the thoracic spine were acquired. COMPARISON: [facility], , THORACIC SPINE 3 VIEWS, 07/27/2016, 14:57. FINDINGS: Bones: No fractures or dislocations. No suspicious bony lesions. 12 pairs of ribs are noted, and appear intact where visualized. Soft tissues: No paravertebral stripe thickening. IMPRESSION: Mild upper and middle 3rd degenerative disc disease along the thoracic spine not appreciably changed from prior examination. No trauma found. Dictated by: Claudy Briscoe M.D. on 05/11/2021 at 14:39 Approved by: Claudy Briscoe M.D. on 05/11/2021 at 14:39
== END ==
PROVIDERS: PCP Nurse Practitioner Family; Referring Provider Physical Medicine & Rehabilitation; Visit Provider Physical Medicine & Rehabilitation
DX: M50.11 Cervical disc disorder with radiculopathy, high cervical region (principal); M47.22 Other spondylosis with radiculopathy, cervical region; M48.02 Spinal stenosis, cervical region; M51.04 Intervertebral disc disorders with myelopathy, thoracic region; M47.816 Spondylosis without myelopathy or radiculopathy, lumbar region; M47.817 Spondylosis without myelopathy or radiculopathy, lumbosacral region; M51.27 Other intervertebral disc displacement, lumbosacral region
CPT/HCPCS: 72050; 72072; 72110

== ENCOUNTER → 2022-09-26 12:41 | Outpatient (CLI) | payer OTHER, MEDICAID, SELFPAY ==
--- NOTE | 2022-09-26 12:42 | DI.MRI.S_ITS ---
PROCEDURE: MR KNEE RT WO CON INDICATIONS: ACUTE PAIN IN RT KNEE/EDEMA OF KNEE TECHNIQUE: Noncontrast sagittal PD fast spin echo and T2 fast spin echo with fat saturation, sagittal 3-D FLASH with fat saturation; coronal T1 spin echo and PD fast spin echo with fat saturation, and axial PD fast spin echo with fat saturation through the knee. COMPARISON: None. FINDINGS: Image quality: Excellent Menisci: Medial: Oblique tear of the posterior horn of the medial meniscus involving the free edge and inferior surface. There is some edema at the meniscocapsular junction as well. Lateral: Mild internal signal abnormality may be from a prior injury. There is fraying at the peripheral edge. The meniscal popliteal fascicles are intact. Cruciate ligaments: Intact Medial structures: MCL: Mild periligamentous edema. Pes anserine tendons: Mild bursitis Semimembranosus: Intact Lateral structures: LCL: Intact Biceps femoris: Intact IT band: Intact Popliteus tendon: Mild insertional tendinopathy with fluid. Anterior structures: Extensor mechanism: Edema is seen in the distal patellar tendon. Fat pads: Mild edema at the superolateral corner of Hoffa's fat pad Medial retinaculum: Mild edema around the retinaculum. Trochlea: Normal morphology. However, there is some lateral tilt of the patella. TT TG distance is at the upper limit of normal, about 14-15 mm. Bone and joint: Bones: No acute fracture. Cartilage: High-grade cartilage loss of the inferior patella involving the lateral facet and median ridge, with underlying marrow edema. Mild to moderate chondromalacia elsewhere. Joint space: Small joint effusion. Marques's cyst: None Soft tissues: There is probably an ectatic vein in the gluteal fossa. This is not well evaluated. There also suspected ganglion cyst in the posterior soft tissues. IMPRESSION: The cruciate ligaments are intact. Suspected sprain of the MCL with pes anserine bursitis. Medial meniscus oblique tear involving the free edge and inferior surface with some edema at the meniscal capsular junction. Lateral tilt of the patella, with mild edema at the superolateral corner of Hoffa's fat pad can sometimes be seen with maltracking. There is also some edema seen around the distal patellar tendon. High-grade cartilage loss in the inferior patella with some underlying marrow edema. Small joint effusion. Other findings as above. Dictated by: Adrian Palmer M.D. on 09/26/2022 at 13:58 Approved by: Adrian Palmer M.D. on 09/26/2022 at 14:11
== END ==
PROVIDERS: PCP Nurse Practitioner Family; Referring Provider Family Medicine; Visit Provider Family Medicine
DX: S83.241A Other tear of medial meniscus, current injury, right knee, initial encounter (principal); M25.561 Pain in right knee; M25.461 Effusion, right knee
CPT/HCPCS: 73721

== ENCOUNTER → 2023-05-22 14:10 | Outpatient (CLI) | payer OTHER, MEDICAID, SELFPAY ==
--- NOTE | 2023-05-22 | DI.US.S_ITS ---
PROCEDURE: US PELVIC COMPLETE INDICATIONS: PELVIC PERINEAL PAIN; RIGHT SUPRAPUBIC LUMP TECHNIQUE: Real-time scanning was performed of the pelvic organs, with image documentation. Additional endovaginal scanning was necessary due to incomplete visualization of the adnexal and endometrial structures by transabdominal scanning. COMPARISON: [facility], , PELVIC COMPLETE, 01/03/2017, 11:53. FINDINGS: Uterus: The uterus is surgically absent. No abnormality is seen in vaginal cuff region. Ovaries: The right ovary measures 2.7 x 4.3 x 3.1 cm, with a calculated ovarian volume of 18.8 cc. The left ovary is surgically absent. Less than 12 follicles can be seen in right ovary. No adnexal masses are seen. Simple cyst measures 2.1 x 1.5 x 1.8 cm in size is noted in right ovary. 2.1 x 1.4 x 1 2 cm and 1.2 x 1.1 x 1.5 cm complex appearing cystic structures are noted in left ovary. Other: No pathologic free abdominal or pelvic fluid. IMPRESSION: 1. Prior hysterectomy and left oophorectomy. 2. Simple and complex appearing cysts in right ovary as described above suggest ultrasound follow-up in 4-6 weeks. No gross solid appearing ovarian lesions. No pelvic free fluid. We strive to produce accurate, complete, and clear reports of imaging services. To assist us in improving patient care, this report was composed using standard report templates and voice recognition software. Therefore, it may contain abnormal punctuation, insertions and/or omissions. Occasional wrong-word or sound-alike substitutions may occur. Though we review the report and make efforts to correct it, we do recommend that the report be read carefully in proper context to recognize any text inaccuracies. Dictated by: Joshua Vides M.D. on 05/22/2023 at 17:16 Approved by: Joshua Vides M.D. on 05/22/2023 at 17:25
== END ==
PROVIDERS: PCP Family Medicine; Referring Provider Family Medicine; Visit Provider Family Medicine
DX: N83.291 Other ovarian cyst, right side (principal); N83.292 Other ovarian cyst, left side; R10.2 Pelvic and perineal pain; R19.00 Intra-abdominal and pelvic swelling, mass and lump, unspecified site; Z90.710 Acquired absence of both cervix and uterus; Z90.722 Acquired absence of ovaries, bilateral
CPT/HCPCS: 76830; 76856; 93976

== ENCOUNTER 2023-10-21 10:40 | Emergency (ER) | payer OTHER, MEDICAID, SELFPAY ==
[2023-10-21 10:56] VITALS: BP 134/90; PULSE 94; RESP 15; TEMP 36.7; O2SAT 99; BMI 28.8
[2023-10-21] MEDS: diphenhydrAMINE 25 MG TABLET PO (11:12)
[2023-10-21] MEDS: FAMOTIDINE 20 MG TABLET 40 MG PO (11:13)
--- NOTE | 2023-10-21 11:53 | ED.ALLEREA ---
HPI - Allergic Reaction <Bisi Henderson PA-C - Last Filed: 10/21/23 12:08> General Chief complaint: Allergic Reaction Stated complaint: allergic reaction medication (sulfasalazine) Time Seen by Provider: 10/21/23 11:31 Source: patient Mode of arrival: Ambulatory History of Present Illness HPI narrative: 48-year-old female with a history of PTSD and rheumatoid arthritis who presents with recent onset itchy skin and rash. About 2 weeks ago she was started on sulfasalazine for RA. Her dose was titrated and started small though she does remember now noticing her scalp itching right after starting the med. As her dose has increased she is noticed increasing itchiness around her chest especially back and arms with some itchiness on her legs. She is not had associated fever chills chest pain shortness of breath or cough. Her tongue and mouth are not burning. She does note 1 day of burning with urination. She has never had a UTI and has no risk factors such as sexual intercourse for UTI. Related Data Home Medications Medication Instructions Recorded Confirmed aspirin 81 mg tablet,delayed 81 mg PO DAILY 01/15/20 02/22/21 release diazepam 5 mg tablet mg PO DAILY PRN anxiety 12/23/20 02/22/21 trazodone 50 mg tablet 150 mg PO BEDTIME 12/23/20 02/22/21 oxycodone 5 mg tablet mg PO DAILY PRN 02/22/21 02/22/21 tramadol 50 mg tablet mg PO BID PRN 02/22/21 02/22/21 Previous Rx's Medication Instructions Recorded gabapentin 100 mg capsule 100 mg PO TID #90 caps 02/22/21 gabapentin 600 mg tablet 1,200 mg (2 x 600 mg) PO TID PRN 04/08/21 anxiety, nerve pain #360 tabs celecoxib 200 mg capsule See Rx Instructions .Route 06/14/21 .COMPLEX #30 caps Allergies Allergy/AdvReac Type Severity Reaction Status Date / Time sulfasalazine Allergy Verified 10/21/23 10:56 cortisone [CORTISONE] AdvReac Severe ANXIETY Verified 10/21/23 10:56 SECONDARY TO CORTISONE SHOT dexamethasone AdvReac Severe anxiety/barraza Verified 10/21/23 10:56 ic duloxetine AdvReac Severe anxiety/barraza Verified 10/21/23 10:56 ic fermented drinks AdvReac Intermediate Headache/Na Uncoded 02/22/21 13:29 usea WINE AdvReac Mild STOMACH Uncoded 02/22/21 13:29 ACHE, HEADACHE Review of Systems <Bisi Henderson PA-C - Last Filed: 10/21/23 12:08> Review of Systems ROS Unobtainable: All systems reviewed & are unremarkable except as noted in HPI and below Patient History <Bisi Henderson PA-C - Last Filed: 10/21/23 12:08> Medical History Facet arthropathy, lumbar CTS (carpal tunnel syndrome) Herniated nucleus pulposus with myelopathy, thoracic Sacroiliac joint pain Surgical History Status post bilateral salpingo-oophorectomy (BSO) (02/06/17) Status post hysterectomy (02/06/17) Status post laparoscopy (02/06/17) Status post appendectomy Family History Father Age: 77 Hypertension Social History Smoking Status: Unknown if ever smoked Smoking Status: Unknown if ever smoked alcohol intake frequency: holidays/special occasions only Substance Use Type: marijuana Exam <Bisi Henderson PA-C - Last Filed: 10/21/23 12:08> Narrative Exam Narrative: GENERAL: 48 year old patient appears stated age. Well-developed patient, in no distress. HEAD: Atraumatic. Normocephalic. EYES: Pupils equal round and reactive. Extraocular motions intact. No scleral icterus. No injection or drainage. ENT: Nose without bleeding, purulent drainage. Throat without erythema, mucous membranes are moist, tongue without swelling or erythema. CARDIOVASCULAR: Regular rate and rhythm without murmurs, gallops, or rubs. RESPIRATORY: Clear to auscultation. Breath sounds equal bilaterally. No wheezes, rales, or rhonchi. GASTROINTESTINAL: Abdomen soft, non-tender, nondistended. EXTREMITIES: No edema or joint tenderness. BACK: Nontender without deformity or crepitance. No flank tenderness. NEURO: AOx3. SKIN: The skin of her upper chest is moderately beefy red with that extends to mid rest. Upper back also moderately red without tenderness, positive for scattered macular papular raised areas that are non friable. Non erythematous papular lesions of the lower upper extremities bilaterally. Legs without significant rash or papules. Initial Vital Signs Initial Vital Signs: Vital Signs Temperature 98.1 F 10/21/23 10:56 Pulse Rate 94 H 10/21/23 10:56 Respiratory Rate 15 10/21/23 10:56 Blood Pressure 134/90 10/21/23 10:56 Pulse Oximetry 99 10/21/23 10:56 Oxygen Delivery Method Room Air 10/21/23 10:56 <Irma Mosquera DO - Last Filed: 10/28/23 02:40> Initial Vital Signs Initial Vital Signs: Vital Signs Temperature 98.1 F 10/21/23 10:56 Pulse Rate 94 H 10/21/23 10:56 Respiratory Rate 15 10/21/23 10:56 Blood Pressure 134/90 10/21/23 10:56 Pulse Oximetry 99 10/21/23 10:56 Oxygen Delivery Method Room Air 10/21/23 10:56 Course <Bisi Henderson PA-C - Last Filed: 10/21/23 12:08> Orders Ordered: Discontinued Medications Diphenhydramine HCl (Diphenhydramine 25 Mg Tablet) 25 mg PO NOW ONE Stop: 10/21/23 11:05 Last Admin: 10/21/23 11:12 Dose: 25 mg Documented By: SARITA Famotidine (Famotidine 20 Mg Tablet) 40 mg PO NOW ONE Stop: 10/21/23 11:16 Last Admin: 10/21/23 11:13 Dose: 40 mg Documented By: SARITA Vital Signs Vital signs: Vital Signs - 8 hr 10/21/23 10:56 Temperature 98.1 F Pulse Rate 94 H Respiratory Rate 15 Blood Pressure 134/90 Pulse Oximetry 99 Oxygen Delivery Method Room Air <Irma Mosquera DO - Last Filed: 10/28/23 02:40> Orders Ordered: Discontinued Medications Diphenhydramine HCl (Diphenhydramine 25 Mg Tablet) 25 mg PO NOW ONE Stop: 10/21/23 11:05 Last Admin: 10/21/23 11:12 Dose: 25 mg Documented By: SARITA Famotidine (Famotidine 20 Mg Tablet) 40 mg PO NOW ONE Stop: 10/21/23 11:16 Last Admin: 10/21/23 11:13 Dose: 40 mg Documented By: SARITA Vital Signs Vital signs: Vital Signs - 8 hr 10/21/23 10:56 Temperature 98.1 F Pulse Rate 94 H Respiratory Rate 15 Blood Pressure 134/90 Pulse Oximetry 99 Oxygen Delivery Method Room Air MDM - Allergic Reaction <Bisi Henderson PA-C - Last Filed: 10/21/23 12:08> Differential Diagnosis Differential diagnosis: Likely allergic reaction, angioedema, contact dermatitis, adverse reaction to drug, viral enanthem and urticaria Lab Data Labs: Lab Results 10/21/23 Range/Units 11:27 Urine RBC 10-30/hpf H (0-5/HPF) Urine WBC 0-1/hpf (0-5/HPF) Ur Squamous Epith Cells None seen (0-5/HPF) Calcium Oxalate Crystal Few H Urine Bacteria None seen (None) Urine Mucus 1+ H (Negative) Urine Dip Bedside Urine Glucose Negative Bedside Urine Bilirubin - Negative Bedside Urine Ketone - Negative Urine Specific [place] 1.020 Bedside Urine Occult Blood +++ Bedside Urine pH 6.0 Bedside Urine Protein + 30 Bedside Urine Urobilinogen 0.2 Bedside Urine Nitrite - Negative Bedside Urine Leukocytes +/- 15 Esterase MDM Narrative Medical decision making narrative: History and physical exam appear consistent with allergic drug reaction given her history. She already discontinued the sulfasalazine. She is feeling generally well except for the itch. No respiratory or mucous membrane involvement that make me suspicious for Young Maurilio syndrome. She feels comfortable being discharged with instructions to simply take a nonsedating antihistamine on a daily basis until her rash has resolved. This patient was discussed with Dr. Imra Mosquera who agrees with the assessment and plan. <Irma Mosquera DO - Last Filed: 10/28/23 02:40> Lab Data Labs: Lab Results 10/21/23 Range/Units 11:27 Urine RBC 10-30/hpf H (0-5/HPF) Urine WBC 0-1/hpf (0-5/HPF) Ur Squamous Epith Cells None seen (0-5/HPF) Calcium Oxalate Crystal Few H Urine Bacteria None seen (None) Urine Mucus 1+ H (Negative) Urine Dip Bedside Urine Glucose Negative Bedside Urine Bilirubin - Negative Bedside Urine Ketone - Negative Urine Specific [place]well 1.020 Bedside Urine Occult Blood +++ Bedside Urine pH 6.0 Bedside Urine Protein + 30 Bedside Urine Urobilinogen 0.2 Bedside Urine Nitrite - Negative Bedside Urine Leukocytes +/- 15 Esterase Discharge Plan Departure Patient Disposition: Home Clinical Impression: Allergic drug reaction Qualifiers: Encounter type: initial encounter Qualified Code(s): T78.40XA - Allergy, unspecified, initial encounter Instructions: DI for Adverse Drug Reaction -- Allergic Activity Restrictions/Additional Instructions: Your rash is consistent with an adverse reaction to medication. Your exam is reassuring for no more serious side effects. Please discontinue the drug and follow up with your medical provider this coming week to discuss a new regimen. I recommend you take an fwuv-[id number]-cudifrt antihistamine such as Claritin or Zyrtec every day to help calm the rash. You can take oatmeal warm bath which can help with skin itching. I believe the pain with urination will clear up once the rash does, however if you continue to experience burning with urination check in with us about your urine culture. Please return to the ER for any acute onset worsening of your symptoms. It was a pleasure to take care of you today. Prescriptions: No Action gabapentin 600 mg tablet 1,200 mg PO TID PRN (Reason: anxiety, nerve pain) Qty: 360 2RF celecoxib 200 mg capsule See Rx Instructions .ROUTE .COMPLEX Qty: 30 2RF Dose Instruction: TAKE ONE(1) CAPSULE BY MOUTH ONCE DAILY Rx Instructions: TAKE ONE(1) CAPSULE BY MOUTH ONCE DAILY trazodone 50 mg tablet 150 mg PO BEDTIME diazepam 5 mg tablet PO DAILY PRN (Reason: anxiety) aspirin 81 mg tablet,delayed release (DR/EC) 81 mg PO DAILY tramadol 50 mg tablet PO BID PRN oxycodone 5 mg tablet PO DAILY PRN gabapentin 100 mg capsule 100 mg PO TID Qty: 90 2RF Referrals: China Forman MD [Primary Care Provider] - Stand Alone Forms: Patient Portal/API ED Sign-out <Irma Mosquera DO - Last Filed: 10/28/23 02:40> Cosign ED Attending Xiang Attestation: I was immediately available in the department for consultation. Patient seen briefly. Case was reviewed.
[2023-10-21 11:59] LABS: Bacteria Urine None Seen; Calcium Oxalate Crystals Urine Few; RBC Urine 10-30/HPF (0-5/HPF); Squamous Epithelial Cell Urine None Seen (0-5/HPF); WBC Urine 0-1/HPF (0-5/HPF)
[2023-10-21 12:00] LABS: Mucus Urine 1+ (Negative)
[2023-10-21 12:06] VITALS: BP 168/72; PULSE 88; RESP 16; TEMP 36.8; O2SAT 98
== END 2023-10-21 12:06 | disposition home or self-care (01) ==
PROVIDERS: Emergency Provider Physician Assistant; PCP Family Medicine
DX: T50.905A Adverse effect of unspecified drugs, medicaments and biological substances, initial encounter (principal)
CPT/HCPCS: 81003; 81015; 87086; 99283; A9270